=== PATIENT | male | born 1960 | race Caucasian/White ===

== ENCOUNTER 2020-10-13 11:27 | Emergency (ER) | payer OTHER ==
[2020-10-13 12:56] LABS: #Basophils 0.1 thou/uL (0.0-0.2); #Eosinphils 0.1 thou/uL (0.0-0.7); #Lymphocytes 2.4 thou/uL (1.20-3.40); #Monocytes 1.7 thou/uL (0.11-0.59); #Neutrophils 7.7 thou/uL (1.40-6.50); %Basophils 0.7 % (0.0-1.0); %Eosinophils 0.7 % (0.0-10.0); %Lymphocytes 20.1 % (21.0-51.0); %Monocytes 14.5 % (0.0-10.0); %Neutrophils 64.1 % (42.0-75.0); Hemoglobin 13.1 g/dL (14.0-18.0); Mean Corpuscular HGB CONC 34.6 g/dL (32.0-36.0); Mean Corpuscular Hemoglobin 30.4 pg (27.0-31.0); Mean Corpuscular Volume 87.8 fL (78.0-98.0); Mean Platelet Volume 8.5 fL (7.4-10.4); Platelet Count 154 thou/uL (130-400); RBC Distribution Width 11.3 % (11.5-14.5); White Blood Cell (WBC) Count 11.9 thou/uL (4.8-10.8)
[2020-10-13 13:01] LABS: AST (SGOT) 26 U/L (5-34); Albumin 3.3 g/dL (3.5-5.0); Alkaline Phosphatase 132 U/L (40-110); Anion Gap 19 mmol/L (10-20); BUN (Urea Nitrogen) 13 mg/dL (8.4-25.7); Bilirubin, Total 0.4 mg/dL (0.2-1.2); Calc. Creatinine Clearance 0 mL/min (70-130); Carbon Dioxide 21 mmol/L (22-29); Chloride 94 mmol/L (98-107); Globulin 3.9 g/dL (2.4-3.5); Glucose 513 mg/dL (70-105); Potassium 4.5 mmol/L (3.5-5.1); Protein, Total 7.2 g/dL (6.0-8.3); Sodium 129 mmol/L (136-145)
[2020-10-13 13:12] LABS: ALT (SGPT) 22 U/L (8-55)
[2020-10-13 13:13] LABS: Lipase 29 U/L (8-78)
[2020-10-13 13:38] LABS: Bilirubin Negative (Negative); Blood, Urine Negative (Negative); Clarity Clear (Clear); Glucose, Urine (Dipstick) Greater than 1000 mg/dL (Negative); Ketone, Urine Negative (Negative); Leukocyte Negative Leu/uL (Negative); Nitrite Negative (Negative); Protein, Urine (Dipstick) Negative (Neg-Trace); Specific Gravity, Urine 1.035 (1.002-1.036); Urobilinogen Normal mg/dL (Less than 2); pH, Urine 5.5 (5.0-9.0)
[2020-10-13] MEDS ORDERED: Ondansetron PF 4 MG/2 ML Vial ONE (13:55)
[2020-10-13] MEDS ORDERED: Morphine 4 MG/ML VIAL ONE (13:55)
--- NOTE | 2020-10-13 14:08 | CT ---
CT Stone Protocol History: Pain Comparison: None. Findings: Within the left lower lobe abutting the pleura is a nodule measuring up to 11 mm which appe ars contain intramural macroscopic fat. No pericardial effusion. Nodular appearance of the liver. No hydroureteronephrosis or nephroureterolithiasis. No secondary evidence of a recently passed stone. Some low-grade stranding of both kidneys may be sequela of underlying medical renal disease. No evide nce for obstructive uropathy. Trace free fluid in the pelvis. No dilated loops of large or small bowel. Small fat-containing bilateral directing no hernias. The appendix is visualized and is normal. No acute osseous normality. Multiple disc osteophyte complexes throughout the thoracic and lumbar spi ne with neural foraminal and spinal canal narrowing. Noncontrast evaluation of the pancreas and adrenal glands are unremarkable. Spleen mildly enlarged. Impression: 1. Hepatic cirrhosis. 2. No nephroureterolithiasis or hydroureteronephrosis. No secondary evidence of a recently passed sto ne. 3. Mild bilateral perinephric stranding can be seen with medical renal disease. No evidence for obstr uctive uropathy. 4. Normal appendix.
[2020-10-13] MEDS ORDERED: Acetaminophen 500 MG TAB ONE (14:31)
--- NOTE | 2020-10-13 15:32 | RAD ---
XR Chest 1 View Portable History: Chest pain Comparison: None. Findings: Lungs are clear. No pneumothorax. No effusion. Cardiac silhouette and mediastinal contours are within normal limits. Impression: No acute intrathoracic abnormality.
[2020-10-13] MEDS ORDERED: Ketorolac Tromethamine 30 MG/ML VIAL ONE (16:36)
== END 2020-10-13 16:45 ==
LOC: ERS 11:27 → EDBD 11:27 → ERS 16:45
DX: R10.9 Unspecified abdominal pain (principal); E11.9 Type 2 diabetes mellitus without complications; I10 Essential (primary) hypertension; E78.5 Hyperlipidemia, unspecified; N40.0 Benign prostatic hyperplasia without lower urinary tract symptoms; Z87.891 Personal history of nicotine dependence; Z79.899 Other long term (current) drug therapy
CPT/HCPCS: 36415; 36416; 71045; 74176; 80053; 81003; 83690; 85025; 96374; 96375; J1885; J2270; J2405